=== PATIENT | female | born 1945 | race Caucasian/White ===

== ENCOUNTER → 2018-08-01 | Outpatient (CLI) | payer MEDICARE, OTHER ==
[2018-08-01 12:23] LABS: HCT 45.1 % (34.0-46.0); HGB 14.5 gm/dL (11.4-16.0); MCH 32.6 pg (25.0-35.0); MCHC 32.1 g/dL (31.0-37.0); MCV 101.4 fL (80.0-100.0); Macrocytosis Slight; Mean Platelet Volume 6.8; Platelet Count 353 k/uL (150-450); RBC 4.45 m/uL (3.80-5.40); WBC 8.6 k/uL (3.8-10.6)
[2018-08-01 16:21] LABS: Albumin 4.4 g/dL (3.80-4.90); Albumin/Globulin Ratio 2.44 (1.20-2.10); Anion Gap 5.3 mmol/L (4.00-12.00); Carbon Dioxide 23.7 mmol/L (21.6-31.8); Globulin 1.8 g/dL (2.1-3.7); Potassium 4.5 mmol/L (3.5-5.5); Total Bilirubin 1.1 mg/dL (0.2-1.2); Total Protein 6.2 g/dL (6.2-8.2)
[2018-08-01 16:25] LABS: Vitamin D 25 Hydroxy 52.4 ng/mL (30.0-100.0)
[2018-08-01 17:57] LABS: ACTH 11.4 pg/mL (0.00-45.99)
== END | disposition home or self-care (01) ==
LOC: LABWHC1 11:21
PROVIDERS: ATTEND Internal Medicine Endocrinology, Diabetes & Metabolism
DX: E55.9 Vitamin D deficiency, unspecified (principal); R53.83 Other fatigue
CPT/HCPCS: 36415; 80053; 82024; 82306; 82533; 84146; 84443; 85027

== ENCOUNTER → 2018-11-09 | Outpatient (CLI) | payer MEDICARE, OTHER ==
--- NOTE | 2018-11-10 09:39 | EST ---
EXERCISE STRESS DATE OF SERVICE: 11/09/2018 AGE: 73 SEX: Female. HT: 4'10-09/07" WT: 145 pounds PROTOCOL Bubba STAGE: III DURATION OF EXERCISE: 7 minutes 31 seconds HEART RATE REST: 69 BLOOD PRESSURE REST: 119/70 MAXIMUM HEART RATE ACHIEVED: 165 MAXIMUM BLOOD PRESSURE: 174/64 85% MPHR: 124 100% MPHR: 146 METS: 9.1 INDICATIONS: Chest pain. STRESS DATA: Pre-testing physical examination showed a heart rate of 69 pressure is 119/70 mmHg. Baseline EKG showed sinus mechanism. The patient exercised on the treadmill according to Bubba protocol for a total of 7 minutes and 31 seconds and achieved 9.1 METS. Max heart rate was 165 beats per minute, which is about 87% of maximum predicted heart rate. Maximum blood pressure was 174/64 mmHg. Clinically the patient did not have any symptoms of chest pain or discomfort. The EKG showed about 1 mm horizontal and downsloping ST-segment changes. The changes were seen at the peak of the exercise as well as on recovery. CONCLUSION: 1. Good exercise tolerance. 2. Mild EKG changes in response to exercise with 1 mm horizontal and downsloping ST- segment changes at the peak of the exercise as well as on recovery. MMODL / IJN: [id number] /
== END ==
LOC: RADNMMAIN 08:24
PROVIDERS: ATTEND Internal Medicine
DX: R07.9 Chest pain, unspecified (principal)
CPT/HCPCS: 93017

== ENCOUNTER → 2020-06-20 | Outpatient (CLI) | payer MEDICARE, OTHER | END | disposition home or self-care (01) | LOC: LABWHC1 11:03 | PROVIDERS: ATTEND Internal Medicine | DX: Z20.828 Contact with and (suspected) exposure to other viral communicable diseases (principal) | CPT/HCPCS: U0003; C9803 ==

== ENCOUNTER 2021-01-02 08:52 | Day surgery (SDC) | payer MEDICARE, OTHER ==
[2020-12-31 10:43] VITALS: BMI 30.3
[~2021-01-02 08:52] MED LIST: ALPRAZolam 0.25 MG TAB PO PRN; ALPRAZolam 0.5 MG TAB PO PRN; ASPIRIN 325 MG TAB PO STA; ATORVASTATIN 80 MG TAB PO STA; HEPARIN SODIUM,PORCINE 10,000 UNIT in SODIUM CHLORIDE 0.9% 1,000 ML IRRIGATION PRN; HEPARIN SODIUM,PORCINE 2,500 UNIT in SODIUM CHLORIDE 0.9% 250 ML IRRIGATION PRN; NITROGLYCERIN SL TABS 0.4 MG TAB SUBLINGUAL PRN; SODIUM CHLORIDE 0.9% 1,000 ML in EMPTY BAG 1 BAG IV ONE
[2021-01-02 09:19] VITALS: TEMP 98.7
[2021-01-02 09:28] LABS: Basophils # (A) 0.1 k/uL (0-0.2); Basophils % (A) 1 %; Eosinophils # (A) 0.3 k/uL (0-0.7); Eosinophils % (A) 3 %; HCT 42.4 % (34.0-46.0); HGB 14.4 gm/dL (11.4-16.0); Lymphocytes # (A) 2.8 k/uL (1.0-4.8); Lymphocytes % (A) 26 %; MCH 33.6 pg (25.0-35.0); MCHC 34.1 g/dL (31.0-37.0); MCV 98.7 fL (80.0-100.0); Mean Platelet Volume 6.9; Monocytes # (A) 0.7 k/uL (0-1.0); Monocytes % (A) 6 %; Neutrophils # (A) 6.5 k/uL (1.3-7.7); Neutrophils % (A) 62 %; Platelet Count 360 k/uL (150-450); RBC 4.29 m/uL (3.80-5.40); RDW 12.9 % (11.5-15.5); WBC 10.5 k/uL (3.8-10.6)
[2021-01-02 09:40] LABS: Calcium 9.7 mg/dL (8.4-10.2); Potassium 4.3 mmol/L (3.5-5.1)
[2021-01-02] MEDS ORDERED: LIDOCAINE 1% INJ 10MG/ML (20 ML MDV) ONE (11:02)
[2021-01-02] MEDS ORDERED: VERAPAMIL 2.5 MG/ML 2 ML AMP ONE (11:02)
[2021-01-02] MEDS ORDERED: HEPARIN SODIUM 1,000 UN/ML (10ML VL) ONE (11:02)
[2021-01-02] MEDS ORDERED: fentaNYL (PF) 50 MCG/ML 2 ML AMP ONE (11:02)
[2021-01-02] MEDS ORDERED: fentaNYL (PF) 50 MCG/ML 2 ML AMP IVP ONE (11:25)
[2021-01-02] MEDS ORDERED: LIDOCAINE 1% INJ 10MG/ML (20 ML MDV) SQ ONE (11:26)
[2021-01-02] MEDS ORDERED: MIDAZOLAM 2 MG/2 ML VIAL IVP ONE (11:28)
[2021-01-02] MEDS: VERAPAMIL SYRINGE (5 MG/10 ML) INTRAARTER ONE ×2 (11:29→11:34)
[2021-01-02] MEDS ORDERED: HEPARIN SODIUM 1,000 UN/ML (10ML VL) IV ONE (11:36)
[2021-01-02] MEDS ORDERED: IOPAMIDOL-370 125ML BTL INJ ONE (11:39)
[2021-01-02] MEDS ORDERED: RX INFO: IV CONTRAST WAS GIVEN 1 EACH MISC MISCELLANE PRN (11:49)
[2021-01-02] MEDS ORDERED: SODIUM CHLORIDE 0.9% 1,000 ML IV SCH (12:00)
[2021-01-02 12:03] VITALS: RESP 16
[2021-01-02 12:46] VITALS: BP 129/57; PULSE 54
--- NOTE | 2021-01-02 12:55 | CC ---
CARDIAC CATHETERIZATION REPORT Mrs. Gonzalez is a 75-year-old female known history of hyperlipidemia, family history of coronary artery disease who has been complaining of episode of chest discomfort at times with mental stress and at times with physical activity. She had an abnormal myocardial perfusion imaging. In view of that, recommendation was made regarding cardiac catheterization. The procedure as well as the risks and the complications were discussed with the patient who is in full understanding and agreement. PROCEDURE: Patient was brought to boat laborer in the fasting semi-sedated state after receiving fentanyl and Benadryl and achieving moderate conscious sedated state. Using Xylocaine anesthesia and Seldinger technique, 6-[place] sheath was introduced in the right radial artery. Selective right and left coronary angiography performed using 5-[place] 3.5 bend, right and left Areli catheter. Multiple views of the coronary artery including hemiaxial views were obtained. Following that, 5-[place] Citizen tight pigtail catheter was introduced in the left ventricle and pressures were calculated. Following that, catheter and sheath were removed. Hemostasis was obtained with deployment of a TR band. There was no immediate complication. The patient was returned to her room in stable condition. FINDINGS: LEFT MAIN: This is a large-sized vessel, bifurcating into left circumflex, left anterior descending artery. Left main artery has no evidence of high-grade stenosis. LEFT ANTERIOR DESCENDING ARTERY: This is a large-sized vessel giving rise to a large diagonal branch proximally. The LAD is quite tortuous throughout the course. It has no evidence of high-grade stenosis. LEFT CIRCUMFLEX: This is a nondominant vessel giving rise to one obtuse marginal branch, tortuous. Left circumflex as well as branches have no evidence of obstructive coronary artery disease. RIGHT CORONARY ARTERY: This is a large dominant vessel bifurcating distally in PDA and posterolateral segment and branches. The right coronary artery as well as branches have no evidence of obstructive coronary artery disease. LEFT VENTRICULOGRAM: Left ventriculogram was not performed. HEMODYNAMICS: There was no gradient across the aortic valve. The left ventricular end-diastolic pressure was 12-14 mmHg. CONCLUSION: 1. Normal coronary arteries. 2. Right dominance. RECOMMENDATION: In view of finding anatomy, I recommend continue medical therapy with aggressive coronary risk modifications that have been initiated. Those findings and recommendation were discussed with the patient and her family and they are in full understanding and agreement. Duration of the procedure is 15 minutes. MMODL / IJN: [id number] /
--- NOTE | 2021-01-02 13:01 | LTR ---
January 02, 2021 Re: Gabriela Gonzalez Dear Dr. Sosa: I had the opportunity to perform cardiac catheterization on Mrs. Gonzalez at [facility] on the 02 of January and a full copy of the procedure note will be forwarded to you. In brief, she was found to have no evidence of obstructive coronary artery disease with a normal left ventricular end-diastolic pressure and based on those findings, I recommend continue medical therapy with aggressive coronary risk modifications that have been initiated. Thank you again for allowing me the opportunity to participate in her care. Please feel free to call for any questions. Sincerely yours, MD THOR SebastianL / COLTONN: [id number] /
[2021-01-03] MEDS ORDERED: LEVOTHYROXINE 50 MCG TAB PO SCH (06:30)
[2021-01-03] MEDS ORDERED: FLUoxetine HCL 20 MG CAP PO SCH (09:00)
[2021-01-03] MEDS ORDERED: ISOSORBIDE MONONITRATE ER 30 MG TAB.ER.24H PO SCH (09:00)
[2021-01-03] MEDS ORDERED: ATORVASTATIN 40 MG TAB PO SCH (09:00)
== END 2021-01-02 14:27 | disposition home or self-care (01) ==
LOC: CATHCVL 08:52
PROVIDERS: ATTEND Internal Medicine Interventional Cardiology
DX: I77.1 Stricture of artery (principal); R07.89 Other chest pain; E07.9 Disorder of thyroid, unspecified; E78.2 Mixed hyperlipidemia; Z87.891 Personal history of nicotine dependence; G47.33 Obstructive sleep apnea (adult) (pediatric); Z99.89 Dependence on other enabling machines and devices; Z90.710 Acquired absence of both cervix and uterus; Z90.49 Acquired absence of other specified parts of digestive tract; Z82.49 Family history of ischemic heart disease and other diseases of the circulatory system; Z79.82 Long term (current) use of aspirin; Z79.890 Hormone replacement therapy; Z79.899 Other long term (current) drug therapy; Z91.040 Latex allergy status
CPT/HCPCS: 93458; 80048; 85025; 87635; C1769; C1894; J2250; J2001; J3010; J1644; Q9967

== ENCOUNTER → 2021-10-29 | Outpatient (CLI) | payer MEDICARE, OTHER ==
--- NOTE | 2021-10-30 01:18 | MR ---
EXAMINATION TYPE: MR lumbar spine wo con DATE OF EXAM: 10/29/2021 COMPARISON: 05/19/2019 HISTORY: Pain in lower back that travels down the left buttock and thigh x1 month Multiplanar multi echo imaging of the lumbar spine without contrast. The lumbar vertebra show minimal degenerative subluxation at L3-4 and L4-5 of 3 mm. There is posterio r disc herniation at L3-4 and L5-S1. There is moderately severe spinal stenosis at L3-4 due to a subl uxation deformity disc herniation and facet arthropathy. There is no compression fracture. There is s ome narrowing of the L4-5 disc space. There is no lumbar paraspinal mass. The posterior elements are intact. Disc herniation at L5-S1 is towards the left side. IMPRESSION: There is a moderate-sized posterior left side L5-S1 lumbar disc herniation with impingement on the th ecal sac and lateral recess and is new compared to old exam. There is a posterior concentric L3-4 disc herniation with facet arthropathy and moderately severe spi nal stenosis that has progressed compared to old exam. No fracture. Minimal subluxation at L3-4 and L4-5.
== END | disposition home or self-care (01) ==
LOC: RADMRIMAIN 07:00
PROVIDERS: ATTEND Nurse Practitioner
DX: M51.17 Intervertebral disc disorders with radiculopathy, lumbosacral region (principal); M47.26 Other spondylosis with radiculopathy, lumbar region; M48.061 Spinal stenosis, lumbar region without neurogenic claudication; M99.13 Subluxation complex (vertebral) of lumbar region
CPT/HCPCS: 72148

== ENCOUNTER 2022-08-12 07:18 | Day surgery (SDC) | payer MEDICARE, OTHER ==
[2022-08-10 15:20] VITALS: BMI 29.9
[~2022-08-12 07:18] MED LIST changes: -ALPRAZolam 0.25 MG TAB PO PRN; -ALPRAZolam 0.5 MG TAB PO PRN; -ASPIRIN 325 MG TAB PO STA; -ATORVASTATIN 80 MG TAB PO STA; -HEPARIN SODIUM,PORCINE 10,000 UNIT in SODIUM CHLORIDE 0.9% 1,000 ML IRRIGATION PRN; -HEPARIN SODIUM,PORCINE 2,500 UNIT in SODIUM CHLORIDE 0.9% 250 ML IRRIGATION PRN; +LACTATED RINGERS 1,000 ML IV SCH; -NITROGLYCERIN SL TABS 0.4 MG TAB SUBLINGUAL PRN; -SODIUM CHLORIDE 0.9% 1,000 ML in EMPTY BAG 1 BAG IV ONE
[2022-08-12 08:06] VITALS: RESP 16; TEMP 97.1
[2022-08-12] MEDS ORDERED: PROPOFOL 10 MG/ML 20 ML VIAL IV ONE (08:29)
[2022-08-12] MEDS ORDERED: LIDOCAINE 2% INJ 20 MG/ML (2 ML VIAL) ONE (08:29)
--- NOTE | 2022-08-12 08:56 | P.PCN ---
Date of Procedure: 08/12/22 Procedure(s) Performed: Brief history: Patient is a pleasant 77-year-old white female scheduled for an elective upper endoscopy as well as colonoscopy as a part of evaluation of GERD and screening for colon cancer Procedure performed: Esophagogastroduodenoscopy with biopsy Colonoscopy Preoperative diagnosis: GERD and screening for colon cancer Anesthesia: MAC Procedure: After informed consent was obtained from the patient was brought into the endoscopy unit and IV sedation was administered by anesthesia under continuous monitoring. Initially upper endoscopy was done. The Olympus GF 160 video endoscope was inserted inserted into the mouth and esophagus intubated without any difficulty and was gradually advanced into the stomach and duodenum and carefully examined. The bulb and second part of the duodenum appeared normal. The scope was then withdrawn into the stomach adequately insufflated with air and upon careful examination the antrum had mild gastritis and biopsies were done from this area. The body, cardia and fundus appeared normal. The scope was then withdrawn into the esophagus. The GE junction was located at 40 cm to the incisors. It appeared regular with no erythema erosions or ulcerations. Rest of the esophagus appeared normal. Patient tolerated the procedure well. At this time the patient continued to remain sedation. Initial digital rectal examination was normal. Olympus CF 160 video colonoscope was then inserted into the rectum and gradually advanced to the cecum without any difficulty. Careful examination was performed as the scope was gradually being withdrawn. The prep was excellent. The cecum, ascending colon, transverse colon, descending colon, sigmoid colon and rectum appeared normal. Scattered sigmoid diverticulosis. Retroflexion was performed in the rectum and no lesions were noted. Patient tolerated the procedure well. Impression: 1. Upper endoscopy revealed mild antral gastritis but no evidence of esophagitis or peptic ulcer disease. 2. Colonoscopy revealed scattered sigmoid diverticulosis but no evidence of colorectal neoplasia Recommendations: Findings of this examination were discussed with the patient as well as a family. She was advised to follow with the biopsy results. Recommend high- fiber diet and fiber supplements as needed. Use [id number] H2 blockers for reflux symptoms.
[2022-08-12 09:19] VITALS: BP 148/65; PULSE 74
== END 2022-08-12 09:57 | disposition home or self-care (01) ==
LOC: ORWHC2ENDO 07:18
PROVIDERS: ATTEND Internal Medicine Gastroenterology
DX: Z12.11 Encounter for screening for malignant neoplasm of colon (principal); K29.50 Unspecified chronic gastritis without bleeding; K21.9 Gastro-esophageal reflux disease without esophagitis; K57.30 Diverticulosis of large intestine without perforation or abscess without bleeding; E78.5 Hyperlipidemia, unspecified; G47.33 Obstructive sleep apnea (adult) (pediatric); E07.9 Disorder of thyroid, unspecified; F41.9 Anxiety disorder, unspecified; E66.9 Obesity, unspecified; Z87.891 Personal history of nicotine dependence; Z99.89 Dependence on other enabling machines and devices; Z91.040 Latex allergy status
CPT/HCPCS: 88305; 43239; J2704; J2001; G0121; 45378

== ENCOUNTER → 2022-09-29 | Outpatient (CLI) | payer MEDICARE, OTHER ==
--- NOTE | 2022-09-29 12:58 | CT ---
EXAMINATION TYPE: CT chest w con DATE OF EXAM: 09/29/2022 COMPARISON: None HISTORY: SOB post covid CT DLP: 309.1 mGycm Automated exposure control for dose reduction was used. CONTRAST: CT scan of the chest is performed with IV Contrast, patient injected with 70cc mL of Isovue 300. FINDINGS: LUNGS: The lungs are grossly clear, there is no concerning parenchymal mass or nodule identified. T here is no pleural effusion or pneumothorax seen. The tracheobronchial tree is patent. MEDIASTINUM: There are no greater than 1 cm hilar or mediastinal lymph nodes. No pericardial effusi on is seen. Thoracic aorta is of normal caliber. The heart is not enlarged. UPPER ABDOMEN: No significant abnormality appreciated. OTHER: No additional significant abnormality is seen. IMPRESSION: No significant abnormality to account for the patient's symptoms.
== END | disposition home or self-care (01) ==
LOC: RADCTMAIN 12:02
PROVIDERS: ATTEND Internal Medicine
DX: U09.9 Post COVID-19 condition, unspecified (principal); R06.02 Shortness of breath
CPT/HCPCS: 71260; Q9967

== ENCOUNTER → 2022-12-23 | Outpatient (CLI) | payer MEDICARE, OTHER ==
--- NOTE | 2022-12-23 21:32 | MR ---
EXAMINATION TYPE: MR brain and iac wo/w con DATE OF EXAM: 12/23/2022 9:00 AM CLINICAL INDICATION:Female, 77 years old with history of R42 DIZZINESS; COMPARISON: None TECHNIQUE: Multi planar, multi sequence imaging was performed through the brain. Specialized thin s equences were obtained through the internal auditory canals. Pre-and post gadolinium sequences were obtained. MR contrast: IV Contrast: 7 cc Gadavist FINDINGS: The cardenas-white junctions, ventricular system, and cisterns appear unremarkable. Scattered foci of h igh T2 signal intensity are seen within the periventricular white matter. Some of these periventricul ar white matter somewhat orthogonal to the ventricles. Midline structures show no abnormality. Diffus ion-weighted imaging shows no evidence of restricted diffusion. The susceptibility weighted images do not reveal any evidence for micro-hemorrhage. The bone marrow signal is within normal limits. Paranasal sinuses and mastoid air cells: Mild scattered paranasal sinus disease. Visualized orbits: Orbital contents are intact. After administration of gadolinium, no abnormal enhancement is seen. The internal auditory canal sequences demonstrate no significant irregularity. The 7th cranial nerve s, 8 cranial nerves, and cerebellar pontine angles appear unremarkable. After the administration jessica olinium, no abnormal enhancement is seen within the internal auditory canals. Vascular loop: None. IMPRESSION: 1. No evidence of intracranial mass nor acute/subacute CVA. 2. No evidence of internal auditory canal abnormality. 3. Nonspecific white matter changes some of which are perpendicularly oriented to the ventricles. Co rrelate for demyelination versus small vessel ischemic disease.
== END | disposition home or self-care (01) ==
LOC: RADMRIMAIN 08:13
PROVIDERS: ATTEND Otolaryngology
DX: R90.82 White matter disease, unspecified (principal); R42 Dizziness and giddiness
CPT/HCPCS: 70553; A9585

== ENCOUNTER → 2023-08-10 | Outpatient (CLI) | payer MEDICARE, OTHER ==
--- NOTE | 2023-08-10 18:37 | BD ---
EXAMINATION TYPE: Axial Bone Density DATE OF EXAM: 08/10/2023 CLINICAL HISTORY: 78 years old Female. ICD-10 CODE: ,M85.851 Height: 4 ft 10 in Weight: 147 FRAX RISK QUESTIONS: Alcohol (3 or more units per day): no Family History (Parent hip fracture): no Glucocorticoids (More than 3mos): yes (Ex: prednisone, prednisolone, methylprednisolone, dexamethasone, and hydrocortisone). History of Fracture in Adulthood: no Secondary Osteoporosis: 1. Type 1 Diabetes: no 2. Hyperthyroidism: no 3. Menopause before 45: yes 4. Malnutrition: no 5. Chronic liver disease: no Rheumatoid Arthritis: no Current Tobacco Use: no RISK FACTORS HISTORY OF: Surgery to Spine/Hip(right/left)/Wrist (right/left): lumbar surg no metal When: 2020 Family History of Osteoporosis: yes Active: yes Diet low in dairy products/other sources of calcium: no Postmenopausal woman: yes Take estrogen and/or progesterone medications: none now Lost more than 2 inches in height since high school: yes Frequent falls: no Poor Health: good Hyperparathyroidism: no Adrenal Insufficiency: no MEDICATIONS: Prednisone or other steroids: shot in eye How Lon years Thyroid Medications: yes Which medication: synthroid How Lon years Additional Medications: synthroid,anxiety meds, isosorbide, Detrol, Additional History: EXAM MEASUREMENTS: Bone mineral densitometry was performed using the Perminova System. Bone mineral density as measured about the Lumbar spine is: ----- L1-L4(G/cm2): 1.227 T Score Values are as follows: ----- L1: -0.8 ----- L2: -0.5 ----- L3: 0.9 ----- L4: 1.4 ----- L1-L4: 0.4 Z Score Values are as follows: ----- L1: 0.9 ----- L2: 1.2 ----- L3: 2.6 ----- L4: 3.2 ----- L1-L4: 2.2 baseline Bone mineral density about the R hip (g/cm2): 0.863 Bone mineral density about the L hip (g/cm2): 0.877 T Score values are as follows: -----R Neck: -1.3 -----L Neck: -1.2 -----R Total: -0.5 -----L Total: -0.1 Z Score values are as follows: -----R Neck: 0.8 -----L Neck: 0.9 -----R Total: 1.4 -----L Total: 1.9 baseline FRAX%s: The graph provided illustrates a 12.0 % chance for a major osteoporotic fx and a 2.5 % chance for the hips probability for fx in 10 years time. IMPRESSION: Osteopenia (T Score between -2.5 and -1). There is slightly increased risk of fracture and the patient may be considered for treatment. Re-Screen 2-5 years. NOTE: T-SCORE=SD OF THE YOUNG ADULT MEAN.
--- NOTE | 2023-08-11 15:55 | MM ---
Reason for Exam: Screening (asymptomatic). Last mammogram was performed 19 year(s) and 9 month(s) ago. Patient History: Menarche at age 10. First Full-Term at age 19. Left ovary removed at age 44. Right ovary removed at age 44. Hysterectomy at age 44. Postmenopausal. Maternal grandmother had breast cancer, age 80. Risk Values: Aretha 5 year model risk: 1.7%. NCI Lifetime model risk: 2.8%. Prior Study Comparison: 11/18/2001 Left Special View Mammogram, [facility]. 11/20/2002 Bilateral Screening Mammogram, [facility]. 11/22/2003 Bilateral Screening Mammogram, [facility]. Tissue Density: There are scattered fibroglandular densities. Findings: Analyzed By CAD. An appears symmetrical and stable. Benign spherical calcifications within the right breast. No significant interval changes are evident. No suspicious groups of microcalcifications, spiculated or lobular masses, architectural distortion or other secondary signs of malignancy are mammographically apparent. Overall Assessment: Benign, BI-RAD 2 Management: Screening Mammogram of both breasts in 1 year. A negative mammogram report should not preclude additional follow up of suspicious palpable abnormalities. Patient should continue monthly self breast exam. A clinical breast exam by your physician is recommended on an annual basis and results should be correlated with mammographic findings. Electronically signed and approved by: Michael Guerra D.O. Radiologis
== END | disposition home or self-care (01) ==
LOC: RADMAMWWP 08:04
PROVIDERS: ATTEND Internal Medicine
DX: Z12.31 Encounter for screening mammogram for malignant neoplasm of breast (principal); M85.89 Other specified disorders of bone density and structure, multiple sites; Z80.3 Family history of malignant neoplasm of breast; Z78.0 Asymptomatic menopausal state
CPT/HCPCS: 77063; 77067; 77080

== ENCOUNTER → 2023-11-22 | Outpatient (CLI) | payer MEDICARE, OTHER ==
--- NOTE | 2023-11-22 19:50 | XR ---
EXAMINATION TYPE: XR shoulder complete BILAT DATE OF EXAM: 11/22/2023 3:56 PM CLINICAL INDICATION:Female, 78 years old with history of M25.512 PAIN IN LEFT SHOULDER; [facility] COMPARISON: TECHNIQUE: XR shoulder complete BILAT; examined in AP, internally rotated and scapular Y projections. FINDINGS: Osteoarthritis of both shoulders manifested by cartilage loss and periarticular osteophytosis. No evidence of acute osseous pathology, joint dislocation, or soft tissue swelling. The remaining po rtions of the visualized chest are unremarkable. IMPRESSION: Osteoarthritis both shoulders. No acute osseous abnormality.
--- NOTE | 2023-11-23 08:54 | XR ---
EXAMINATION TYPE: XR cervical spine comp DATE OF EXAM: 11/22/2023 3:55 PM CLINICAL INDICATION:Female, 78 years old with history of M25.512 PAIN IN LEFT SHOULDER; [facility] COMPARISON: None. TECHNIQUE: The cervical spine was imaged in frontal, lateral, odontoid and bilateral oblique. FINDINGS: The osseous structures show normal alignment without evidence of an acute fracture. No significant ve rtebral body osteophytes or facet joint arthropathy. The intervertebral disk spaces are preserved. Pe dicles are intact. Soft tissues are within normal limits. The odontoid appears intact. IMPRESSION: 1. No fracture or dislocation. 2. Mild degenerative disc disease changes of the cervical spine.
== END | disposition home or self-care (01) ==
LOC: RADXRMAIN 15:35
PROVIDERS: ATTEND Internal Medicine
DX: M19.011 Primary osteoarthritis, right shoulder (principal); M19.012 Primary osteoarthritis, left shoulder; M50.30 Other cervical disc degeneration, unspecified cervical region
CPT/HCPCS: 72050

== ENCOUNTER → 2024-02-24 | Outpatient (CLI) | payer MEDICARE, OTHER ==
--- NOTE | 2024-02-24 15:01 | XR ---
EXAMINATION TYPE: XR ankle complete RT DATE OF EXAM: 02/24/2024 COMPARISON: None HISTORY: Falling pain TECHNIQUE: Three-view right ankle FINDINGS: Soft tissue swelling is over the lateral malleolus. The ankle mortise is intact. No acute f racture or dislocation is evident. Plantar calcaneal heel spur is present. Follow up exams can be performed 7-10 days from acute trauma for continued pain. IMPRESSION: 1. No acute osseous abnormality right ankle. 2. Soft tissue swelling lateral malleolus. 3. Plantar calcaneal heel spur
--- NOTE | 2024-02-24 15:03 | XR ---
EXAMINATION TYPE: XR foot complete RT DATE OF EXAM: 02/24/2024 COMPARISON: None HISTORY: Three-view right foot TECHNIQUE: Falling injury, pain FINDINGS: Plantar calcaneal heel spur is present. Soft tissues appear normal over the foot. There is soft tissue swelling over the lateral malleolus region. No acute fracture or dislocation is evident. There is loss of the first metatarsophalangeal joint spa ce. Mild diffuse narrowing of the proximal and distal interphalangeal joint spaces is present. Follow up exams can be performed 7-10 days from acute trauma for continued pain. IMPRESSION: 1. No acute osseous abnormality right foot. 2. Soft tissue swelling right lateral ankle
== END | disposition home or self-care (01) ==
LOC: RADXRMAIN 14:06
PROVIDERS: ATTEND Internal Medicine
DX: M77.31 Calcaneal spur, right foot (principal); M25.474 Effusion, right foot; Z91.81 History of falling

== ENCOUNTER → 2024-02-25 | Outpatient (CLI) | payer MEDICARE, OTHER ==
--- NOTE | 2024-03-10 23:34 | P.PCN ---
Date of Procedure: 02/25/24 Operative Findings: Home sleep study testing Date of services 02/25/2024 Pertinent history 79-year-old female patient diagnosed having obstructive sleep apnea back in 2007 currently she is utilizing CPAP therapy. During her last office visit, I checked the patient's CPAP unit and the patient has a ResMed 10. She also expressed interest in utilizing other alternative treatment including an oral appliance. Based on that, home sleep study was ordered to reevaluate the presence of obstructive sleep apnea and severity. Physical findings The patient has a weight of 145 pounds with a body mass index of 31.4 Technical description The ResMed ApneaLink system was used to complete this home sleep study. Total recording duration was 9 hours and 24 minutes. This is a type III home sleep study. The study started at 10:55 PM and ended at 8:20 AM. There was more than 9 hours of flow and oxygen saturation monitoring. Results Respiratory evaluation showed a total of 20 obstructive apneas and 90 obstructive hypopneas. The resulting AHI was 12, slightly worse in the supine body position. Oxygenation analysis The patient's baseline pulse ox while awake was 96%, average pulse ox during sleep was 92% with a minimum pulse ox of 64%. The patient spent approximately 1 hours and 22 minutes of sleep time below pulse ox of 89% Cardiac summary The average heart rate was 88 with a minimum heart rate of 49 and maximum heart rate of 208 Assessment Mild obstructive sleep apnea with an AHI of 12, slightly worsened in supine body position and the patient has been effectively treated with CPAP therapy looking for alternative treatments. Nocturnal oxygen saturation with a minimum pulse ox of 64% hypothyroidism Hyperlipidemia Major depression Plan Continue CPAP therapy for now. Meanwhile, the patient is seeking alternative treatment. I think it is reasonable to consider an oral appliance. The patient has been made the appropriate referral to see Dr. Freeman Watts and consideration for an oral appliance for treatment of mild obstructive sleep apnea.
== END ==
LOC: 3 N SLEEP 11:54
PROVIDERS: ATTEND Internal Medicine Critical Care Medicine
DX: G47.33 Obstructive sleep apnea (adult) (pediatric) (principal); E78.5 Hyperlipidemia, unspecified; G47.36 Sleep related hypoventilation in conditions classified elsewhere; E03.9 Hypothyroidism, unspecified; F32.9 Major depressive disorder, single episode, unspecified; Z99.89 Dependence on other enabling machines and devices; Z91.040 Latex allergy status; Z79.890 Hormone replacement therapy

== ENCOUNTER → 2024-02-29 | Outpatient (CLI) | payer MEDICARE, OTHER ==
--- NOTE | 2024-02-29 10:08 | CT ---
EXAMINATION TYPE: CT facial bones wo con DATE OF EXAM: 02/29/2024 COMPARISON: None HISTORY: fall, laceration to bridge of nose CT DLP: 372.[address] of the facial bones was performed in the axial and coronal planes. Bone and soft tissu e window settings are submitted. No significant soft tissue swelling is appreciated. I do not see evidence for displaced facial bone fracture or depressed facial bone fracture. The globes are intact. Left-sided scleral buckle procedure. Paranasal sinuses are well-aerated. IMPRESSION: 1. No evidence for depressed or displaced facial bone fracture.
--- NOTE | 2024-02-29 10:10 | CT ---
EXAMINATION TYPE: CT brain zulma moseley DATE OF EXAM: 02/29/2024 COMPARISON: None HISTORY: fall CT DLP: 1652.[address] of the brain was performed. The ventricles, basal cisterns and sulci overlying the cerebral convexities demonstrate enlargement. There is no evidence for intracranial hemorrhage or sulcal effacement. There is decreased attenuatio n about the periventricular white matter and deep white matter of both cerebral hemispheres, compatib le with chronic small vessel ischemia. No mass effects are seen. If symptoms persist consider MRI. Osseous calvarium is intact. IMPRESSION: 1. Age related atrophic and chronic small vessel ischemic change without acute intracranial process seen at this time. CT Cervical Spine: Unenhanced CT of the cervical spine was performed with bone and soft tissue window settings submitted . Coronal and sagittal reconstruction is obtained. There is normal alignment and prevertebral soft tissues. No evidence for acute cervical fracture . Scattered degenerative disc disease and spondylosis. Biapical scarring. IMPRESSION: 1. No evidence for acute fracture or subluxation of the cervical spine.
== END | disposition home or self-care (01) ==
LOC: RADCTMAIN 09:42
PROVIDERS: ATTEND Internal Medicine
DX: I67.82 Cerebral ischemia (principal); G93.89 Other specified disorders of brain; S01.21XA Laceration without foreign body of nose, initial encounter; Z91.81 History of falling
CPT/HCPCS: 70450; 70486; 72125

== ENCOUNTER → 2024-11-16 | Outpatient (CLI) | payer MEDICARE, OTHER ==
--- NOTE | 2024-11-16 13:28 | CT ---
EXAMINATION TYPE: CT lumbar spine wo con DATE OF EXAM: 11/16/2024 1:16 PM COMPARISON: None CLINICAL INDICATION: Female, 79 years old with history of R05.1 ACUTE COUGH; PH[facility], recent low back sx TECHNIQUE: Unenhanced CT of the lumbar spine was performed. Bone and soft tissue window settings are submitted as well as coronal and sagittal reconstructions. CT DLP: 699.[address] CTDI: mGy Automated exposure control for dose reduction was used. FINDINGS: There are postsurgical changes of interbody and posterior metallic fusion of L4 and L5. There is a pe rsistent grade 1 anterolisthesis of L4 on L5. There is moderate to marked degenerative disease at the L5-S1 level where there is moderate to marked disc space narrowing and vacuum phenomena. There is mild disc space narrowing and spondylosis at the L3-4 level indicating mild degenerative dis ease. L1-2 and L2-3 disks are fairly well preserved. The lumbar vertebral segments are normal in height and there is no acute fracture secondary to circum ferential disc bulge, marked hypertrophy of the facets and thickening of ligamentum flavum, there is moderate to severe spinal stenosis at the L3-4 level. There is mild bony neural foraminal encroachment at the L3-4 level bilaterally. IMPRESSION: 1. No acute lumbar spine fracture. 2. Postsurgical changes of fusion at the L4-5 along with persistent grade 1 anterolisthesis of L4 on L5. 3. Mild degenerative disease at the L3-4 level and moderate to severe degenerative disease at the L5- S1 level. No definite lumbar disc herniation. 4. Moderate to marked spinal stenosis at the L3-4 level and mild bony neural foraminal encroachment a t the L3-4 level bilaterally. [facility], , 11/16/2024 1:26 PM
== END | disposition home or self-care (01) ==
LOC: RADCTMAIN 13:00
PROVIDERS: ATTEND Neurological Surgery
DX: M43.16 Spondylolisthesis, lumbar region (principal); M47.816 Spondylosis without myelopathy or radiculopathy, lumbar region; M51.379 Other intervertebral disc degeneration, lumbosacral region without mention of lumbar back pain or lower extremity pain; M48.061 Spinal stenosis, lumbar region without neurogenic claudication; M99.73 Connective tissue and disc stenosis of intervertebral foramina of lumbar region
CPT/HCPCS: 72131

== ENCOUNTER → 2025-01-18 | Outpatient (CLI) | payer MEDICARE, OTHER ==
--- NOTE | 2025-01-18 09:36 | MM ---
Reason for Exam: Screening (asymptomatic). Last mammogram was performed 1 year(s) and 5 month(s) ago. Patient History: Menarche at age 10. First Full-Term at age 19. Left ovary removed at age 44. Right ovary removed at age 44. Hysterectomy at age 44. Postmenopausal. Maternal grandmother had breast cancer, age 80. Risk Values: Aretha 5 year model risk: 1.6%. NCI Lifetime model risk: 2.5%. Prior Study Comparison: 11/20/2002 Bilateral Screening Mammogram, [facility]. 11/22/2003 Bilateral Screening Mammogram, [facility]. 08/10/2023 Bilateral MG 3D screening mammo w/cad, [facility]. Tissue Density: There are scattered areas of fibroglandular density. Findings: Analyzed By CAD. There are a few tiny benign-appearing round calcification scattered throughout the right breast. Benign-appearing bilateral axillary lymph nodes are redemonstrated. There is no suspicious group of microcalcifications or new suspicious mass in either breast. Overall Assessment: Benign, BI-RAD 2 Management: Screening Mammogram of both breasts in 1 year. . Patient should continue monthly self-breast exams. A clinical breast exam by your physician is recommended on an annual basis. This exam should not preclude additional follow-up of suspicious palpable abnormalities. Note on Aretha scores and lifetime risk: 1. A Aretha score greater than 3% is considered moderate risk. If this is the case, consider specialist referral to assess eligibility for a risk reducing agent. 2. If overall lifetime risk for the development of breast cancer is 20% or higher, the patient may qualify for future screening with alternating mammogram and breast MRI. [facility], , 01/18/2025 9:33 AM. Electronically signed and approved by: Zenon Villegas M.D.
== END | disposition home or self-care (01) ==
LOC: RADMAMWWP 08:35
PROVIDERS: ATTEND Internal Medicine
DX: Z12.31 Encounter for screening mammogram for malignant neoplasm of breast (principal); R92.323 Mammographic fibroglandular density, bilateral breasts; R92.1 Mammographic calcification found on diagnostic imaging of breast; Z78.0 Asymptomatic menopausal state; Z80.3 Family history of malignant neoplasm of breast
CPT/HCPCS: 77063; 77067